=== PATIENT | male | born 1930 | race Caucasian/White ===

== ENCOUNTER 2017-01-28 11:55 | Inpatient (IN) | payer OTHER ==
[~2017-01-28] VITALS: Ht 167.6 cm; Wt 63.6 kg
[~2017-01-28 11:55] MED LIST: ALLOPURINOL100 MG PO; CAPSAICIN42.5 GM TP; COUMADIN,JANTO1.5 MG PO; COUMADIN3 MG PO; CYANOCOBALAM1000 MCG PO; FERROUS SULFAT325 MG PO; FINASTERIDE5 M1 PO; LOSARTAN POTASS50 MG PO; NORVASC10 MG PO; OMEPRAZOLE20 M2 PO; PROPRANOLOL HCL60 MG PO; SIMVASTATIN20 M1 PO; TERAZOSIN HCL2 MG PO; TRANSDERM-NITR0.2 MG TD; TYLENOL325 M1 PO; WARFARIN SODIUM3 MG PO
[2017-01-28 13:31] LABS: HEMATOCRIT 29.3 % (38.0-50.0); MCH 30.2 PG (29.0-34.0); MCHC 31.7 G/DL (30.0-36.0); MCV 95.1 FL (86-99); MEAN PLAT.VOLUME 9.2 uM^3 (9.0-12.4); PLATELET COUNT 94 K/uL (156-360); RBC DIS.WIDTH-CV 13.6 % (11.8-14.6); RBC DIS.WIDTH-SD 46.9 % (39-53); RED BLOOD COUNT 3.08 M/uL (4.00-5.50); WHITE BLOOD COUNT 4.6 K/uL (4.1-10.2)
[2017-01-28 13:39] LABS: INTER. NORMALIZED RATIO 1.9; PROTHROMBIN TIME 19.6 (9.2-11.2)
[2017-01-28 13:40] LABS: CHLORIDE 101 mEq/L (99-109); POTASSIUM 4.1 mEq/L (3.7-5.4); SODIUM 133 mEq/L (136-147)
[2017-01-28 13:42] LABS: GLUCOSE 99 mg/dL (70-99)
[2017-01-28 13:43] LABS: ANION GAP 9 MEQ/L (2-14)
[2017-01-28 13:46] LABS: GFR ESTIMATE (CALCULATED) 47 mL/min/
[2017-01-28 13:47] LABS: UREA NITROGEN (BUN) 25 mg/dL (9-23)
[2017-01-28] MEDS ORDERED: ZOCOR80 MG PO (14:00)
[2017-01-28] MEDS ORDERED: NITROGLYCERIN1 EAC4 TD (14:02)
[2017-01-28] MEDS ORDERED: PROPRANOLOL HCL20 MG PO (14:04)
[2017-01-28] MEDS ORDERED: COZAAR100 MG PO (14:05)
[2017-01-28] MEDS ORDERED: PROSCAR5 MG PO (14:06)
[2017-01-28] MEDS ORDERED: VITAMIN D31000 UNIT PO (14:08)
[2017-01-28] MEDS ORDERED: LASIX40 MG PO (14:09)
[2017-01-28] MEDS ORDERED: K-DUR20 MEQ PO (14:10)
[2017-01-28 16:34] VITALS: BP 118/61
[2017-01-28 16:37] LABS: ADD MIUA? YES; BILIRUBIN NEGATIVE; BLOOD MODERATE; COLOR STRAW ((YELLOW)); GLUCOSE (STRIP) NEGATIVE; KETONES NEGATIVE; LEUKOCYTES NEGATIVE; NITRITE NEGATIVE; PROTEIN (STRIP) NEGATIVE; SPECIFIC GRAVITY 1.004 (1.000-1.030); UROBILINOGEN 0.2 MG/DL (0.2-1.0)
[2017-01-28 16:45] LABS: BACTERIA NONE SEEN /HPF; EPITHELIAL CELLS NONE SEEN /HPF; MUCUS TRACE /LPF; RED BLOOD CELLS 0-5 /HPF (0-5); WHITE BLOOD CELLS 0-5 /HPF (0-5)
[2017-01-28 18:27] LABS: HEMATOCRIT 29.8 % (38.0-50.0); MCH 30.2 PG (29.0-34.0); MCHC 31.5 G/DL (30.0-36.0); MCV 95.8 FL (86-99); MEAN PLAT.VOLUME 10.3 uM^3 (9.0-12.4); PLATELET COUNT 100 K/uL (156-360); RBC DIS.WIDTH-CV 13.7 % (11.8-14.6); RBC DIS.WIDTH-SD 47.8 % (39-53); RED BLOOD COUNT 3.11 M/uL (4.00-5.50)
[2017-01-28 19:14] VITALS: BP 111/63
[2017-01-28 23:25] VITALS: BP 90/60
[2017-01-29] VITALS (10 sets, daily range): BP systolic 93–145; BP diastolic 51–70
[2017-01-29 05:46] LABS: EOSINOPHIL (%) 0.2 % (0-5); IMMATURE GRANULOCYTE (%) 0.2 % (0.0-0.7); INSTRUMENT ABS NEUTROPHIL CT 2.8 K/uL; MCH 31.7 PG (29.0-34.0); MCHC 33.4 G/DL (30.0-36.0); MCV 94.8 FL (86-99); MEAN PLAT.VOLUME 10.1 uM^3 (9.0-12.4); MONOCYTE (%) 10.8 % (3-12); MONOCYTE COUNT 0.5 K/uL (0-0.8); NEUTROPHIL (%) 66.2 % (45-76); NEUTROPHIL COUNT 2.8 K/uL (1.8-6.4); PLATELET COUNT 85 K/uL (156-360); RBC DIS.WIDTH-CV 14.1 % (11.8-14.6); RBC DIS.WIDTH-SD 48.3 % (39-53); RED BLOOD COUNT 3.06 M/uL (4.00-5.50); WHITE BLOOD COUNT 4.3 K/uL (4.1-10.2)
[2017-01-29 06:12] LABS: PROTHROMBIN TIME 20.4 (9.2-11.2)
[2017-01-29 06:34] LABS: ANION GAP 8 MEQ/L (2-14); CHLORIDE 103 MEQ/L (99-109); GFR ESTIMATE (CALCULATED) 44 mL/min/; GLUCOSE 96 mg/dL (70-99); POTASSIUM 4.3 MEQ/L (3.7-5.4); SAMPLE HEMOLYSIS CHECK 0; SAMPLE ICTERIC CHECK 0; SAMPLE LIPEMIA CHECK 0; SODIUM 137 MEQ/L (136-147); UREA NITROGEN (BUN) 26 mg/dL (9-23)
[2017-01-30] VITALS (10 sets, daily range): BP systolic 82–135; BP diastolic 46–69
[2017-01-30 06:36] LABS: EOSINOPHIL (%) 0.2 % (0-5); HEMATOCRIT 29.5 % (38.0-50.0); IMMATURE GRANULOCYTE (%) 0.6 % (0.0-0.7); INSTRUMENT ABS NEUTROPHIL CT 3.2 K/uL; LYMPHOCYTE COUNT 1.1 K/uL (1.0-2.8); MCH 31.4 PG (29.0-34.0); MCHC 33.2 G/DL (30.0-36.0); MCV 94.6 FL (86-99); MEAN PLAT.VOLUME 10.9 uM^3 (9.0-12.4); MONOCYTE COUNT 0.5 K/uL (0-0.8); NEUTROPHIL (%) 65.9 % (45-76); NEUTROPHIL COUNT 3.2 K/uL (1.8-6.4); PLATELET COUNT 92 K/uL (156-360); RBC DIS.WIDTH-CV 14.4 % (11.8-14.6); RBC DIS.WIDTH-SD 48.7 % (39-53); RED BLOOD COUNT 3.12 M/uL (4.00-5.50); WHITE BLOOD COUNT 4.8 K/uL (4.1-10.2)
[2017-01-30 06:46] LABS: INTER. NORMALIZED RATIO 2.1; PROTHROMBIN TIME 21.4 (9.2-11.2)
[2017-01-30 07:00] LABS: ANION GAP 8 MEQ/L (2-14); CHLORIDE 102 MEQ/L (99-109); POTASSIUM 3.9 MEQ/L (3.7-5.4); SAMPLE HEMOLYSIS CHECK 0; SAMPLE ICTERIC CHECK 0; SAMPLE LIPEMIA CHECK 0; SODIUM 138 MEQ/L (136-147)
[2017-01-30 07:06] LABS: GFR ESTIMATE (CALCULATED) 41 mL/min/; GLUCOSE 95 mg/dL (70-99); UREA NITROGEN (BUN) 29 mg/dL (9-23)
[2017-01-30 18:29] LABS: ANION GAP 9 MEQ/L (2-14); CHLORIDE 103 MEQ/L (99-109); GFR ESTIMATE (CALCULATED) 44 mL/min/; GLUCOSE 116 mg/dL (70-99); POTASSIUM 3.7 MEQ/L (3.7-5.4); SAMPLE HEMOLYSIS CHECK 0; SAMPLE ICTERIC CHECK 0; SAMPLE LIPEMIA CHECK 0; SODIUM 137 MEQ/L (136-147); UREA NITROGEN (BUN) 33 mg/dL (9-23)
[2017-01-31] VITALS (7 sets, daily range): BP systolic 100–126; BP diastolic 64–74
[2017-01-31 06:12] LABS: HEMATOCRIT 30.2 % (38.0-50.0); MCH 31.7 PG (29.0-34.0); MCHC 33.8 G/DL (30.0-36.0); MCV 93.8 FL (86-99); PLATELET COUNT 90 K/uL (156-360); RBC DIS.WIDTH-CV 14.3 % (11.8-14.6); RBC DIS.WIDTH-SD 49.1 % (39-53); RED BLOOD COUNT 3.22 M/uL (4.00-5.50); WHITE BLOOD COUNT 5.2 K/uL (4.1-10.2)
[2017-01-31 06:36] LABS: INTER. NORMALIZED RATIO 1.4; PROTHROMBIN TIME 14.7 (9.2-11.2)
[2017-01-31 06:38] LABS: ANION GAP 9 MEQ/L (2-14); CHLORIDE 104 MEQ/L (99-109); GFR ESTIMATE (CALCULATED) 47 mL/min/; GLUCOSE 104 mg/dL (70-99); POTASSIUM 3.8 MEQ/L (3.7-5.4); SAMPLE HEMOLYSIS CHECK 0; SAMPLE ICTERIC CHECK 0; SAMPLE LIPEMIA CHECK 0; SODIUM 139 MEQ/L (136-147); UREA NITROGEN (BUN) 31 mg/dL (9-23)
[2017-01-31 10:54] LABS: INTER. NORMALIZED RATIO 1.3; PROTHROMBIN TIME 13.4 (9.2-11.2)
[2017-02-01 03:54] VITALS: BP 129/63
[2017-02-01 06:45] LABS: EOSINOPHIL (%) 0 % (0-5); HEMATOCRIT 30.2 % (38.0-50.0); IMMATURE GRANULOCYTE (%) 0.4 % (0.0-0.7); INSTRUMENT ABS NEUTROPHIL CT 4.1 K/uL; LYMPHOCYTE COUNT 0.9 K/uL (1.0-2.8); MCH 30.6 PG (29.0-34.0); MCHC 32.5 G/DL (30.0-36.0); MCV 94.4 FL (86-99); MEAN PLAT.VOLUME 10.7 uM^3 (9.0-12.4); MONOCYTE (%) 10.2 % (3-12); MONOCYTE COUNT 0.6 K/uL (0-0.8); NEUTROPHIL COUNT 4.1 K/uL (1.8-6.4); PLATELET COUNT 99 K/uL (156-360); RBC DIS.WIDTH-CV 14.2 % (11.8-14.6); RBC DIS.WIDTH-SD 48.2 % (39-53); WHITE BLOOD COUNT 5.6 K/uL (4.1-10.2)
[2017-02-01 07:13] LABS: INTER. NORMALIZED RATIO 1.3; PROTHROMBIN TIME 13.1 (9.2-11.2)
[2017-02-01 07:28] LABS: ALKALINE PHOSPHATASE 55 IU/L (3-129); ANION GAP 9 MEQ/L (2-14); CHLORIDE 106 MEQ/L (99-109); GFR ESTIMATE (CALCULATED) 47 mL/min/; GLUCOSE 118 mg/dL (70-99); POTASSIUM 4.2 MEQ/L (3.7-5.4); SAMPLE HEMOLYSIS CHECK 0; SAMPLE ICTERIC CHECK 0; SAMPLE LIPEMIA CHECK 0; SODIUM 141 MEQ/L (136-147); TOTAL BILIRUBIN 0.7 MG/DL (0.0-1.0); UREA NITROGEN (BUN) 34 mg/dL (9-23)
[2017-02-01 07:30] LABS: ANION GAP 8 MEQ/L (2-14); CHLORIDE 106 MEQ/L (99-109); GFR ESTIMATE (CALCULATED) 51 mL/min/; GLUCOSE 116 mg/dL (70-99); POTASSIUM 4.2 MEQ/L (3.7-5.4); SAMPLE HEMOLYSIS CHECK 0; SAMPLE ICTERIC CHECK 0; SAMPLE LIPEMIA CHECK 0; SODIUM 141 MEQ/L (136-147); UREA NITROGEN (BUN) 34 mg/dL (9-23)
[2017-02-01 07:40] VITALS: BP 125/60
[2017-02-01 10:38] LABS: INTER. NORMALIZED RATIO 1.3; PROTHROMBIN TIME 13.1 (9.2-11.2)
[2017-02-01 11:05] VITALS: BP 90/56
[2017-02-01 16:08] LABS: MCV 95.5 FL (86-99)
[2017-02-01 16:17] VITALS: BP 127/58
[2017-02-01 20:15] VITALS: BP 109/59
[2017-02-01 23:36] VITALS: BP 108/59
[2017-02-02 04:14] VITALS: BP 119/69
[2017-02-02 07:45] VITALS: BP 124/71
[2017-02-02 09:05] LABS: HEMATOCRIT 31.6 % (38.0-50.0); MCH 30.9 PG (29.0-34.0); MCV 96.6 FL (86-99); MEAN PLAT.VOLUME 10.6 uM^3 (9.0-12.4); PLATELET COUNT 122 K/uL (156-360); RBC DIS.WIDTH-CV 14.3 % (11.8-14.6); RED BLOOD COUNT 3.27 M/uL (4.00-5.50); WHITE BLOOD COUNT 5.2 K/uL (4.1-10.2)
[2017-02-02 09:17] LABS: INTER. NORMALIZED RATIO 1.4; PROTHROMBIN TIME 13.9 (9.2-11.2)
[2017-02-02 09:21] LABS: ANION GAP 6 MEQ/L (2-14); CHLORIDE 106 MEQ/L (99-109); GFR ESTIMATE (CALCULATED) 51 mL/min/; GLUCOSE 98 mg/dL (70-99); POTASSIUM 4.2 MEQ/L (3.7-5.4); SAMPLE HEMOLYSIS CHECK 0; SAMPLE ICTERIC CHECK 0; SAMPLE LIPEMIA CHECK 0; SODIUM 139 MEQ/L (136-147); UREA NITROGEN (BUN) 35 mg/dL (9-23)
[2017-02-02 11:42] VITALS: BP 119/65
[2017-02-02 19:47] VITALS: BP 115/69
[2017-02-02 23:26] VITALS: BP 106/57
[2017-02-03 03:51] VITALS: BP 113/65
[2017-02-03 06:43] LABS: HEMATOCRIT 31.6 % (38.0-50.0); MCH 30.6 PG (29.0-34.0); MCV 95.8 FL (86-99); MEAN PLAT.VOLUME 11.1 uM^3 (9.0-12.4); PLATELET COUNT 130 K/uL (156-360); RBC DIS.WIDTH-CV 14.2 % (11.8-14.6); RBC DIS.WIDTH-SD 49.1 % (39-53); WHITE BLOOD COUNT 6.1 K/uL (4.1-10.2)
[2017-02-03 06:54] LABS: INTER. NORMALIZED RATIO 1.6; PROTHROMBIN TIME 16.7 (9.2-11.2)
[2017-02-03 07:02] LABS: ANION GAP 9 MEQ/L (2-14); CHLORIDE 106 MEQ/L (99-109); GFR ESTIMATE (CALCULATED) 51 mL/min/; GLUCOSE 98 mg/dL (70-99); POTASSIUM 4.1 MEQ/L (3.7-5.4); SAMPLE HEMOLYSIS CHECK 0; SAMPLE ICTERIC CHECK 0; SAMPLE LIPEMIA CHECK 0; SODIUM 140 MEQ/L (136-147); UREA NITROGEN (BUN) 35 mg/dL (9-23)
[2017-02-03 07:35] VITALS: BP 114/64
[2017-02-03 10:51] LABS: MAGNESIUM 1.8 mg/dl (1.3-2.7)
[2017-02-03 11:54] VITALS: BP 123/65
[2017-02-03 12:34] LABS: ADD MIUA? YES; BILIRUBIN NEGATIVE; BLOOD NEGATIVE; COLOR YELLOW ((YELLOW)); GLUCOSE (STRIP) NEGATIVE; KETONES 5; LEUKOCYTES NEGATIVE; NITRITE NEGATIVE; PROTEIN (STRIP) NEGATIVE; UROBILINOGEN 0.2 MG/DL (0.2-1.0)
[2017-02-03 12:41] LABS: BACTERIA NONE SEEN /HPF; EPITHELIAL CELLS RARE /HPF; MUCUS TRACE /LPF; RED BLOOD CELLS 0-5 /HPF (0-5); WHITE BLOOD CELLS 0-5 /HPF (0-5)
[2017-02-03 15:20] VITALS: BP 129/70
[2017-02-03 19:38] VITALS: BP 119/65
[2017-02-03 19:51] VITALS: BP 121/64
[2017-02-04 00:25] VITALS: BP 95/59
[2017-02-04 03:50] VITALS: BP 110/61
[2017-02-04 06:37] LABS: PROTHROMBIN TIME 20.3 (9.2-11.2)
[2017-02-04 07:31] VITALS: BP 116/62
[2017-02-04 12:33] VITALS: BP 103/67
[2017-02-04] MEDS ORDERED: COUMADIN3 MG PO (14:30)
[2017-02-04] MEDS ORDERED: COUMADIN2 MG PO (14:34)
== END 2017-02-04 16:42 | DRG 480 ==
LOC: EME 11:55 → 3EAST 14:00 → EDOF 14:00 → 3EAST 15:00
PROVIDERS: Emergency Medicine; Hospitalist; Internal Medicine; Orthopaedic Surgery; Physician Assistant
PROC: 30233N1 Transfusion of Nonautologous Red Blood Cells into Peripheral Vein, Percutaneous Approach (ICD-10-PCS; principal; 2017-01-29)
PROC: 0QS704Z Reposition Left Upper Femur with Internal Fixation Device, Open Approach (ICD-10-PCS; 2017-01-31)
DX: S72.142A Displaced intertrochanteric fracture of left femur, initial encounter for closed fracture (principal); J96.01 Acute respiratory failure with hypoxia; I47.2 Ventricular tachycardia; N17.9 Acute kidney failure, unspecified; D61.818 Other pancytopenia; I95.9 Hypotension, unspecified; I13.0 Hypertensive heart and chronic kidney disease with heart failure and stage 1 through stage 4 chronic kidney disease, or unspecified chronic kidney disease; D68.9 Coagulation defect, unspecified; N18.3 Chronic kidney disease, stage 3 (moderate); I27.2 Other secondary pulmonary hypertension; E78.5 Hyperlipidemia, unspecified; E86.0 Dehydration; E86.1 Hypovolemia; G20 Parkinson's disease; I25.10 Atherosclerotic heart disease of native coronary artery without angina pectoris; M10.9 Gout, unspecified; Z86.711 Personal history of pulmonary embolism; Z79.01 Long term (current) use of anticoagulants; K21.9 Gastro-esophageal reflux disease without esophagitis; K91.89 Other postprocedural complications and disorders of digestive system; K56.7 Ileus, unspecified; M41.9 Scoliosis, unspecified; N40.1 Benign prostatic hyperplasia with lower urinary tract symptoms; R33.8 Other retention of urine; Z86.718 Personal history of other venous thrombosis and embolism; Z87.442 Personal history of urinary calculi; N13.30 Unspecified hydronephrosis; Z95.1 Presence of aortocoronary bypass graft; R41.0 Disorientation, unspecified; W11.XXXA Fall on and from ladder, initial encounter; Y92.010 Kitchen of single-family (private) house as the place of occurrence of the external cause; I87.2 Venous insufficiency (chronic) (peripheral); B35.1 Tinea unguium; I89.0 Lymphedema, not elsewhere classified; M17.12 Unilateral primary osteoarthritis, left knee; I50.32 Chronic diastolic (congestive) heart failure; D62 Acute posthemorrhagic anemia; D64.9 Anemia, unspecified; D63.1 Anemia in chronic kidney disease
CPT/HCPCS: 70450; 71010; 71020; 73501; 73502; 73552; 73560; 74000; 76000; 76770; 80048; 80048 91; 80053; 81003; 82272; 83735; 85014; 85018; 85025; 85027; 85610; 85730; 86900; 86901; 86920; 87086; 93005; 93306; 94799; 97530 GO; 97530 GP; 99202; 99281; 99285; C1713; J0330; J0690; J1100; J1644; J1650; J1815; J1940; J2270; J2405; J2710; J3010; J7030; J7120; P9016

== ENCOUNTER 2017-02-08 05:40 | Emergency (ER) | payer OTHER ==
[~2017-02-08] VITALS: Ht 185.4 cm; Wt 82.0 kg
[~2017-02-08 05:40] MED LIST changes: +COUMADIN2 MG PO; +COZAAR100 MG PO; +K-DUR20 MEQ PO; +LASIX40 MG PO; +NITROGLYCERIN1 EAC4 TD; +PROPRANOLOL HCL20 MG PO; +PROSCAR5 MG PO; +VITAMIN D31000 UNIT PO; +ZOCOR80 MG PO
[2017-02-08 06:45] VITALS: BP 98/61
== END 2017-02-08 07:51 ==
LOC: EME → EDBD 05:40 → EME 05:40
DX: G89.18 Other acute postprocedural pain (principal); S00.93XA Contusion of unspecified part of head, initial encounter; W06.XXXA Fall from bed, initial encounter; Y92.122 Bedroom in nursing home as the place of occurrence of the external cause; I11.0 Hypertensive heart disease with heart failure; I50.9 Heart failure, unspecified; E78.5 Hyperlipidemia, unspecified; K21.9 Gastro-esophageal reflux disease without esophagitis
CPT/HCPCS: 70450; 71010; 73030; 73522; 80048; 85027; 85610; 85730; 93005; 99281; 99285

== ENCOUNTER 2017-02-18 03:52 | Inpatient (IN) | payer OTHER ==
[~2017-02-18] VITALS: Ht 167.6 cm; Wt 94.3 kg
[2017-02-18] VITALS (22 sets, daily range): BP systolic 70–114; BP diastolic 35–63
[2017-02-18 04:14] LABS: BASE EXCESS -5.7 mEq/L (-3 to +3); BICARBONATE 17.5 mEq/L (22-26); CARBOXY HGB 2.2 % (0-5); COMMENTS - BLOOD GASES A+C+; DEVICE MASKVENT; METHEMOGLOBIN 1.6 % (0-1.5); PCO2 27 mm Hg (35-45); PO2 229 mm Hg (80-100); SITE RR; pH 7.42 (7.35-7.45)
[2017-02-18 04:15] LABS: FI02 100 %; MODE NSPONT; PEEP 12 CM/H20; PRES. SUPPORT 15 CM/H2O; TOTAL RESP RATE 29 resp/min
[2017-02-18 05:15] LABS: BASE EXCESS -5.9 mEq/L (-3 to +3); BICARBONATE 18.3 mEq/L (22-26); CARBOXY HGB 2.2 % (0-5); COMMENTS - BLOOD GASES C+; DEVICE VENT; FI02 50 %; MECHANICAL RATE 16 resp/min; METHEMOGLOBIN 1.3 % (0-1.5); MODE A/C; PCO2 31 mm Hg (35-45); PEEP 5 CM/H20; PO2 76 mm Hg (80-100); SITE RR; TIDAL VOLUME 500 ML; TOTAL RESP RATE 19 resp/min; pH 7.38 (7.35-7.45)
[2017-02-18 05:38] LABS: HEMATOCRIT 35.9 % (38.0-50.0); MCH 30.2 PG (29.0-34.0); MCHC 32.6 G/DL (30.0-36.0); MCV 92.8 FL (86-99); MEAN PLAT.VOLUME 10.6 uM^3 (9.0-12.4); RBC DIS.WIDTH-CV 14.8 % (11.8-14.6); RBC DIS.WIDTH-SD 50.2 % (39-53); RED BLOOD COUNT 3.87 M/uL (4.00-5.50); WHITE BLOOD COUNT 8.1 K/uL (4.1-10.2)
[2017-02-18 05:39] LABS: PLATELET COUNT 237 K/uL (156-360)
[2017-02-18 05:40] LABS: CHLORIDE 108 mEq/L (99-109); POTASSIUM 3.8 mEq/L (3.7-5.4); SODIUM 138 mEq/L (136-147)
[2017-02-18 05:43] LABS: GLUCOSE 83 mg/dL (70-99); PTT 51.1 (25-32)
[2017-02-18 05:44] LABS: ANION GAP 13 MEQ/L (2-14); TOTAL BILIRUBIN 1.6 mg/dL (0.0-1.0)
[2017-02-18 05:46] LABS: ALKALINE PHOSPHATASE 124 IU/L (3-129); GFR ESTIMATE (CALCULATED) 44 mL/min/
[2017-02-18 05:47] LABS: INTER. NORMALIZED RATIO 3.4; UREA NITROGEN (BUN) 57 mg/dL (9-23)
[2017-02-18 05:50] LABS: LIPASE 69 U/L (1.0-51.0)
[2017-02-18 05:52] LABS: TROP-I INTERPRETATION INDETERMINATE
[2017-02-18 09:03] LABS: METH RESISTANT S AUREUS PCR POSITIVE (NEGATIVE)
[2017-02-18 09:15] LABS: PROBE CHECK PASS; SPECIMEN PROCESSING CONTROL PASS
[2017-02-18 11:04] LABS: MAGNESIUM 1.8 mg/dL (1.3-2.7)
[2017-02-18 15:33] LABS: TROPONIN-I 0.76 ng/mL (0.0-0.30)
[2017-02-18 15:34] LABS: TROP-I INTERPRETATION POSITIVE
[2017-02-18 15:53] LABS: CK-MB 2.1 ng/mL (0.0-4.9)
[2017-02-18 16:07] LABS: CREATINE KINASE 125 IU/L (1-294); TOTAL CK 125 IU/L (1-294)
[2017-02-18 18:13] LABS: TROP-I INTERPRETATION POSITIVE; TROPONIN-I 0.74 ng/mL (0.0-0.30)
[2017-02-18 18:56] LABS: POINT-OF-CARE METER ID UU13113748
[2017-02-18 19:55] LABS: CREATINE KINASE 94 IU/L (1-294); TOTAL CK 94 IU/L (1-294)
[2017-02-18 23:22] LABS: POINT-OF-CARE METER ID UU13113748; POINT-OF-CARE USER ID PHATLC
[2017-02-19] VITALS: BP 90/48
[2017-02-19 01:03] LABS: CREATINE KINASE 80 IU/L (1-294); TOTAL CK 80 IU/L (1-294)
[2017-02-19 01:06] LABS: TROP-I INTERPRETATION POSITIVE; TROPONIN-I 0.81 ng/mL (0.0-0.30)
[2017-02-19 01:09] LABS: CK-MB 1.6 ng/mL (0.0-4.9)
[2017-02-19 06:08] LABS: POINT-OF-CARE METER ID UU13113748
[2017-02-19 06:13] LABS: EOSINOPHIL (%) 0.1 % (0-5); HEMATOCRIT 29.4 % (38.0-50.0); IMMATURE GRANULOCYTE (%) 0.5 % (0.0-0.7); IMMATURE GRANULOCYTE COUNT 0.1 K/uL; INSTRUMENT ABS NEUTROPHIL CT 10.2 K/uL; MCH 31.8 PG (29.0-34.0); MCHC 34.4 G/DL (30.0-36.0); MCV 92.5 FL (86-99); MEAN PLAT.VOLUME 11.6 uM^3 (9.0-12.4); MONOCYTE (%) 5.8 % (3-12); MONOCYTE COUNT 0.7 K/uL (0-0.8); NEUTROPHIL (%) 84.6 % (45-76); NEUTROPHIL COUNT 10.2 K/uL (1.8-6.4); PLATELET COUNT 268 K/uL (156-360); RBC DIS.WIDTH-CV 15.3 % (11.8-14.6); RBC DIS.WIDTH-SD 51.3 % (39-53); RED BLOOD COUNT 3.18 M/uL (4.00-5.50)
[2017-02-19 07:10] LABS: TROP-I INTERPRETATION POSITIVE; TROPONIN-I 0.72 ng/mL (0.0-0.30)
[2017-02-19 07:23] LABS: CK-MB 1.9 ng/mL (0.0-4.9)
[2017-02-19 07:26] LABS: INTER. NORMALIZED RATIO 1.5; PROTHROMBIN TIME 15.6 (9.2-11.2)
[2017-02-19 07:34] LABS: ANION GAP 14 MEQ/L (2-14); CHLORIDE 114 MEQ/L (99-109); CREATINE KINASE 50 IU/L (1-294); GFR ESTIMATE (CALCULATED) 51 mL/min/; GLUCOSE 81 mg/dL (70-99); MAGNESIUM 1.9 mg/dl (1.3-2.7); POTASSIUM 3.4 MEQ/L (3.7-5.4); SAMPLE HEMOLYSIS CHECK 0; SAMPLE ICTERIC CHECK 0; SAMPLE LIPEMIA CHECK 0; SODIUM 141 MEQ/L (136-147); UREA NITROGEN (BUN) 46 mg/dL (9-23)
[2017-02-19 07:40] LABS: TOTAL CK 50 IU/L (1-294)
[2017-02-19 08:31] LABS: INTERNAL CONTROL VALID? YES
[2017-02-19 09:30] VITALS: BP 85/58
[2017-02-19 09:50] LABS: BICARBONATE 14.2 mEq/L (22-26); CARBOXY HGB 2.2 % (0-5); COMMENTS - BLOOD GASES NAC+; DEVICE 980; FI02 30 %; METHEMOGLOBIN 1.9 % (0-1.5); MODE ACVC; PCO2 27 mm Hg (35-45); PO2 109 mm Hg (80-100); SITE ALINE; pH 7.33 (7.35-7.45)
[2017-02-19 09:51] LABS: MECHANICAL RATE 16 resp/min; PEEP 5 CM/H20; TIDAL VOLUME 500 ML; TOTAL RESP RATE 16 resp/min
[2017-02-19 10:00] VITALS: BP 85/58
[2017-02-19 10:56] LABS: PTT 48.7 (25-32)
[2017-02-19 12:00] VITALS: BP 104/68
[2017-02-19 12:43] LABS: POINT-OF-CARE METER ID UU13113748
[2017-02-19 16:00] VITALS: BP 107/68
[2017-02-19 18:32] LABS: POINT-OF-CARE METER ID UU13113748
[2017-02-19 20:00] VITALS: BP 97/64
[2017-02-20 00:31] LABS: POINT-OF-CARE METER ID UU13113748
[2017-02-20 04:00] VITALS: BP 108/68
[2017-02-20 06:03] LABS: POINT-OF-CARE METER ID UU13113731
[2017-02-20 06:10] LABS: EOSINOPHIL (%) 0.4 % (0-5); HEMATOCRIT 24.4 % (38.0-50.0); IMMATURE GRANULOCYTE (%) 0.4 % (0.0-0.7); LYMPHOCYTE COUNT 0.8 K/uL (1.0-2.8); MCH 31.5 PG (29.0-34.0); MCHC 34.8 G/DL (30.0-36.0); MCV 90.4 FL (86-99); MEAN PLAT.VOLUME 11.3 uM^3 (9.0-12.4); MONOCYTE (%) 7.1 % (3-12); MONOCYTE COUNT 0.6 K/uL (0-0.8); NEUTROPHIL (%) 82.5 % (45-76); PLATELET COUNT 215 K/uL (156-360); RBC DIS.WIDTH-CV 15.3 % (11.8-14.6); WHITE BLOOD COUNT 8.4 K/uL (4.1-10.2)
[2017-02-20 06:42] LABS: INTER. NORMALIZED RATIO 1.3; PROTHROMBIN TIME 13.3 (9.2-11.2)
[2017-02-20 06:44] LABS: PTT 86.1 (25-32)
[2017-02-20 06:56] LABS: ANION GAP 5 MEQ/L (2-14); CHLORIDE 112 MEQ/L (99-109); GFR ESTIMATE (CALCULATED) 56 mL/min/; SAMPLE HEMOLYSIS CHECK 2; SAMPLE ICTERIC CHECK 0; SAMPLE LIPEMIA CHECK 0; SODIUM 141 MEQ/L (136-147); UREA NITROGEN (BUN) 36 mg/dL (9-23)
[2017-02-20 06:57] LABS: GLUCOSE 151 mg/dL (70-99)
[2017-02-20 06:59] LABS: POTASSIUM ND MEQ/L (3.7-5.4)
[2017-02-20 08:00] VITALS: BP 100/62
[2017-02-20 08:11] LABS: POTASSIUM 2.9 MEQ/L (3.7-5.4)
[2017-02-20 12:00] VITALS: BP 87/56
[2017-02-20 12:01] LABS: POINT-OF-CARE METER ID UU13113731
[2017-02-20 15:00] VITALS: BP 96/73
[2017-02-20 16:00] VITALS: BP 96/73
[2017-02-20 18:04] LABS: POINT-OF-CARE METER ID UU14162636
[2017-02-20 19:00] VITALS: BP 107/87
[2017-02-20 19:41] LABS: HEMATOCRIT 23.6 % (38.0-50.0); MCV 91.8 FL (86-99)
[2017-02-21 00:09] LABS: POINT-OF-CARE METER ID UU14162636
[2017-02-21 03:31] LABS: HEMATOCRIT 22.7 % (38.0-50.0); MCV 91.5 FL (86-99)
[2017-02-21 07:00] VITALS: BP 108/71
[2017-02-21 07:02] LABS: EOSINOPHIL (%) 0.6 % (0-5); IMMATURE GRANULOCYTE (%) 0.5 % (0.0-0.7); INSTRUMENT ABS NEUTROPHIL CT 4.8 K/uL; LYMPHOCYTE COUNT 0.9 K/uL (1.0-2.8); MCH 31.8 PG (29.0-34.0); MCHC 33.9 G/DL (30.0-36.0); MCV 93.9 FL (86-99); MEAN PLAT.VOLUME 10.6 uM^3 (9.0-12.4); MONOCYTE COUNT 0.4 K/uL (0-0.8); NEUTROPHIL (%) 77.5 % (45-76); NEUTROPHIL COUNT 4.8 K/uL (1.8-6.4); PLATELET COUNT 171 K/uL (156-360); RBC DIS.WIDTH-CV 15.3 % (11.8-14.6); RBC DIS.WIDTH-SD 52.4 % (39-53); RED BLOOD COUNT 2.45 M/uL (4.00-5.50); WHITE BLOOD COUNT 6.2 K/uL (4.1-10.2)
[2017-02-21 07:18] LABS: INTER. NORMALIZED RATIO 1.2; PROTHROMBIN TIME 12.6 (9.2-11.2)
[2017-02-21 07:43] LABS: ANION GAP 10 MEQ/L (2-14); CHLORIDE 111 MEQ/L (99-109); GFR ESTIMATE (CALCULATED) > 59 mL/min/; MAGNESIUM 1.7 mg/dl (1.3-2.7); SAMPLE HEMOLYSIS CHECK 1; SAMPLE ICTERIC CHECK 0; SAMPLE LIPEMIA CHECK 0; SODIUM 143 MEQ/L (136-147); UREA NITROGEN (BUN) 29 mg/dL (9-23)
[2017-02-21 07:44] LABS: GLUCOSE 105 mg/dL (70-99)
[2017-02-21 08:00] VITALS: BP 101/56
[2017-02-21 12:32] LABS: HEMATOCRIT 23.8 % (38.0-50.0); MCV 93.3 FL (86-99)
[2017-02-21 13:00] VITALS: BP 122/72
[2017-02-21 16:00] VITALS: BP 108/71
[2017-02-21 20:00] VITALS: BP 111/64
[2017-02-22] VITALS (13 sets, daily range): BP systolic 72–131; BP diastolic 45–64
[2017-02-22 05:18] LABS: EOSINOPHIL (%) 0.1 % (0-5); HEMATOCRIT 22.8 % (38.0-50.0); IMMATURE GRANULOCYTE (%) 0.6 % (0.0-0.7); INSTRUMENT ABS NEUTROPHIL CT 5.4 K/uL; LYMPHOCYTE COUNT 0.7 K/uL (1.0-2.8); MCH 30.2 PG (29.0-34.0); MCV 94.2 FL (86-99); MEAN PLAT.VOLUME 11.1 uM^3 (9.0-12.4); MONOCYTE (%) 10.1 % (3-12); MONOCYTE COUNT 0.7 K/uL (0-0.8); NEUTROPHIL (%) 79.3 % (45-76); NEUTROPHIL COUNT 5.4 K/uL (1.8-6.4); PLATELET COUNT 135 K/uL (156-360); RBC DIS.WIDTH-CV 15.4 % (11.8-14.6); RBC DIS.WIDTH-SD 52.9 % (39-53); RED BLOOD COUNT 2.42 M/uL (4.00-5.50); WHITE BLOOD COUNT 6.8 K/uL (4.1-10.2)
[2017-02-22 05:28] LABS: INTER. NORMALIZED RATIO 1.2; PROTHROMBIN TIME 12.1 (9.2-11.2); PTT 60.8 (25-32)
[2017-02-22 06:04] LABS: ANION GAP 9 MEQ/L (2-14); CHLORIDE 111 MEQ/L (99-109); GFR ESTIMATE (CALCULATED) 56 mL/min/; GLUCOSE 107 mg/dL (70-99); SAMPLE HEMOLYSIS CHECK 0; SAMPLE ICTERIC CHECK 0; SAMPLE LIPEMIA CHECK 0; SODIUM 143 MEQ/L (136-147); UREA NITROGEN (BUN) 28 mg/dL (9-23)
[2017-02-22 14:06] LABS: BASE EXCESS 1.6 mEq/L (-3 to +3); BICARBONATE 25.7 mEq/L (22-26); CARBOXY HGB 2.7 % (0-5); COMMENTS - BLOOD GASES C+; DEVICE VENT; METHEMOGLOBIN 1.7 % (0-1.5); PCO2 37 mm Hg (35-45); PO2 130 mm Hg (80-100); SITE ALINE; pH 7.45 (7.35-7.45)
[2017-02-22 14:07] LABS: FI02 30 %; MODE SPONT; PEEP 5 CM/H20; PRES. SUPPORT 10 CM/H2O
[2017-02-22 14:36] LABS: TROP-I INTERPRETATION POSITIVE
[2017-02-22 20:22] LABS: ADD MIUA? YES; BILIRUBIN NEGATIVE; BLOOD MODERATE; COLOR YELLOW ((YELLOW)); GLUCOSE (STRIP) NEGATIVE; KETONES NEGATIVE; LEUKOCYTES MODERATE; NITRITE NEGATIVE; PROTEIN (STRIP) 30; SPECIFIC GRAVITY 1.013 (1.000-1.030); UROBILINOGEN 0.2 MG/DL (0.2-1.0)
[2017-02-22 21:08] LABS: BACTERIA 3+ /HPF; EPITHELIAL CELLS RARE /HPF; MUCUS 1+ /LPF; UCUL ADDED? YES
[2017-02-22 21:09] LABS: HYALINE CASTS 40-50 /LPF
[2017-02-22 21:15] LABS: CK-MB 1.7 ng/mL (0.0-4.9)
[2017-02-22 21:16] LABS: TROP-I INTERPRETATION POSITIVE
[2017-02-22 21:30] LABS: TOTAL CK 425 IU/L (1-294)
[2017-02-22 21:57] LABS: CREATINE KINASE 425 IU/L (1-294)
[2017-02-23 01:52] LABS: CREATINE KINASE 424 IU/L (1-294); TOTAL CK 424 IU/L (1-294)
[2017-02-23 01:59] LABS: CK-MB 1.4 ng/mL (0.0-4.9)
[2017-02-23 02:05] LABS: TROP-I INTERPRETATION POSITIVE; TROPONIN-I 0.73 ng/mL (0.0-0.30)
[2017-02-23 04:59] LABS: EOSINOPHIL (%) 0.2 % (0-5); HEMATOCRIT 27.1 % (38.0-50.0); IMMATURE GRANULOCYTE (%) 0.7 % (0.0-0.7); IMMATURE GRANULOCYTE COUNT 0.1 K/uL; INSTRUMENT ABS NEUTROPHIL CT 7.6 K/uL; LYMPHOCYTE COUNT 0.6 K/uL (1.0-2.8); MCH 30.2 PG (29.0-34.0); MCHC 33.6 G/DL (30.0-36.0); MEAN PLAT.VOLUME 10.5 uM^3 (9.0-12.4); MONOCYTE (%) 11.9 % (3-12); MONOCYTE COUNT 1.1 K/uL (0-0.8); NEUTROPHIL (%) 80.8 % (45-76); NEUTROPHIL COUNT 7.6 K/uL (1.8-6.4); PLATELET COUNT 123 K/uL (156-360); RBC DIS.WIDTH-SD 52.8 % (39-53); WHITE BLOOD COUNT 9.4 K/uL (4.1-10.2)
[2017-02-23 05:01] LABS: RED BLOOD COUNT 3.01 M/uL (4.00-5.50)
[2017-02-23 05:06] LABS: INTER. NORMALIZED RATIO 1.2; PROTHROMBIN TIME 12.7 (9.2-11.2); PTT 55.1 (25-32)
[2017-02-23 05:13] LABS: CHLORIDE 111 mEq/L (99-109); POTASSIUM 3.7 mEq/L (3.7-5.4); SODIUM 140 mEq/L (136-147)
[2017-02-23 05:14] LABS: MAGNESIUM 1.6 mg/dL (1.3-2.7)
[2017-02-23 05:16] LABS: GLUCOSE 146 mg/dL (70-99)
[2017-02-23 05:17] LABS: ANION GAP 7 MEQ/L (2-14)
[2017-02-23 05:19] LABS: GFR ESTIMATE (CALCULATED) 51 mL/min/
[2017-02-23 05:20] LABS: UREA NITROGEN (BUN) 30 mg/dL (9-23)
[2017-02-23 07:00] VITALS: BP 111/71
[2017-02-23 08:00] VITALS: BP 111/71
[2017-02-23 09:07] LABS: TROP-I INTERPRETATION POSITIVE; TROPONIN-I 0.65 ng/mL (0.0-0.30)
[2017-02-23 09:14] LABS: CREATINE KINASE 290 IU/L (1-294); TOTAL CK 290 IU/L (1-294)
[2017-02-23 11:10] LABS: CK-MB 1.4 ng/mL (0.0-4.9)
[2017-02-23 19:00] VITALS: BP 98/57
[2017-02-23] MEDS ORDERED: WARFARIN SODIUM1 MG PO ×2 (19:06→19:07)
[2017-02-23] MEDS ORDERED: FLOMAX0.4 MG PO (19:16)
[2017-02-23] MEDS ORDERED: K-DUR10 MEQ PO (19:17)
[2017-02-23] MEDS ORDERED: TYLENOL REGULA325 MG PO (19:20)
[2017-02-23 20:00] VITALS: BP 98/57
[2017-02-24 05:44] LABS: EOSINOPHIL COUNT 0.1 K/uL (0-0.3); HEMATOCRIT 25.1 % (38.0-50.0); IMMATURE GRANULOCYTE (%) 0.9 % (0.0-0.7); IMMATURE GRANULOCYTE COUNT 0.1 K/uL; INSTRUMENT ABS NEUTROPHIL CT 5.3 K/uL; LYMPHOCYTE COUNT 0.7 K/uL (1.0-2.8); MCH 29.7 PG (29.0-34.0); MCHC 32.3 G/DL (30.0-36.0); MCV 91.9 FL (86-99); MEAN PLAT.VOLUME 10.9 uM^3 (9.0-12.4); MONOCYTE (%) 10.2 % (3-12); MONOCYTE COUNT 0.7 K/uL (0-0.8); NEUTROPHIL (%) 77.5 % (45-76); NEUTROPHIL COUNT 5.3 K/uL (1.8-6.4); PLATELET COUNT 107 K/uL (156-360); RBC DIS.WIDTH-CV 16.2 % (11.8-14.6); RED BLOOD COUNT 2.73 M/uL (4.00-5.50); WHITE BLOOD COUNT 6.8 K/uL (4.1-10.2)
[2017-02-24 05:56] LABS: INTER. NORMALIZED RATIO 1.2; PROTHROMBIN TIME 12.7 (9.2-11.2); PTT 53.9 (25-32)
[2017-02-24 06:32] LABS: ANION GAP 8 MEQ/L (2-14); CHLORIDE 112 MEQ/L (99-109); GFR ESTIMATE (CALCULATED) 44 mL/min/; GLUCOSE 134 mg/dL (70-99); POTASSIUM 3.8 MEQ/L (3.7-5.4); SAMPLE HEMOLYSIS CHECK 0; SAMPLE ICTERIC CHECK 0; SAMPLE LIPEMIA CHECK 0; SODIUM 144 MEQ/L (136-147); UREA NITROGEN (BUN) 34 mg/dL (9-23)
[2017-02-24 06:34] LABS: MAGNESIUM 2.4 mg/dl (1.3-2.7)
[2017-02-24 18:00] VITALS: BP 101/58
[2017-02-24 19:00] VITALS: BP 101/58
[2017-02-25 05:43] LABS: EOSINOPHIL (%) 1.1 % (0-5); EOSINOPHIL COUNT 0.1 K/uL (0-0.3); HEMATOCRIT 24.3 % (38.0-50.0); IMMATURE GRANULOCYTE (%) 0.9 % (0.0-0.7); IMMATURE GRANULOCYTE COUNT 0.1 K/uL; INSTRUMENT ABS NEUTROPHIL CT 4.9 K/uL; LYMPHOCYTE COUNT 0.8 K/uL (1.0-2.8); MCH 29.7 PG (29.0-34.0); MCHC 32.1 G/DL (30.0-36.0); MCV 92.4 FL (86-99); MEAN PLAT.VOLUME 11.5 uM^3 (9.0-12.4); MONOCYTE (%) 9.9 % (3-12); MONOCYTE COUNT 0.6 K/uL (0-0.8); NEUTROPHIL (%) 75.4 % (45-76); NEUTROPHIL COUNT 4.9 K/uL (1.8-6.4); PLATELET COUNT 106 K/uL (156-360); RBC DIS.WIDTH-CV 15.9 % (11.8-14.6); RBC DIS.WIDTH-SD 52.7 % (39-53); RED BLOOD COUNT 2.63 M/uL (4.00-5.50); WHITE BLOOD COUNT 6.4 K/uL (4.1-10.2)
[2017-02-25 05:54] LABS: INTER. NORMALIZED RATIO 1.3; PROTHROMBIN TIME 12.9 (9.2-11.2)
[2017-02-25 05:56] LABS: ANION GAP 9 MEQ/L (2-14); CHLORIDE 113 MEQ/L (99-109); GFR ESTIMATE (CALCULATED) 36 mL/min/; GLUCOSE 137 mg/dL (70-99); MAGNESIUM 2.3 mg/dl (1.3-2.7); POTASSIUM 4.2 MEQ/L (3.7-5.4); SAMPLE HEMOLYSIS CHECK 0; SAMPLE ICTERIC CHECK 0; SAMPLE LIPEMIA CHECK 0; SODIUM 144 MEQ/L (136-147); UREA NITROGEN (BUN) 40 mg/dL (9-23)
[2017-02-25 07:51] LABS: PTT 46.3 (25-32)
[2017-02-26] VITALS: BP 87/50
[2017-02-26 06:39] LABS: EOSINOPHIL (%) 0.9 % (0-5); EOSINOPHIL COUNT 0.1 K/uL (0-0.3); HEMATOCRIT 23.9 % (38.0-50.0); IMMATURE GRANULOCYTE (%) 0.8 % (0.0-0.7); IMMATURE GRANULOCYTE COUNT 0.1 K/uL; INSTRUMENT ABS NEUTROPHIL CT 5.9 K/uL; LYMPHOCYTE COUNT 0.9 K/uL (1.0-2.8); MCH 31.1 PG (29.0-34.0); MCHC 33.1 G/DL (30.0-36.0); MCV 94.1 FL (86-99); MEAN PLAT.VOLUME 11.9 uM^3 (9.0-12.4); MONOCYTE COUNT 0.6 K/uL (0-0.8); NEUTROPHIL (%) 78.2 % (45-76); NEUTROPHIL COUNT 5.9 K/uL (1.8-6.4); RBC DIS.WIDTH-SD 54.1 % (39-53); RED BLOOD COUNT 2.54 M/uL (4.00-5.50); WHITE BLOOD COUNT 7.6 K/uL (4.1-10.2)
[2017-02-26 06:42] LABS: PLATELET COUNT 138 K/uL (156-360)
[2017-02-26 06:52] LABS: ANION GAP 9 MEQ/L (2-14); CHLORIDE 114 MEQ/L (99-109); GFR ESTIMATE (CALCULATED) 32 mL/min/; GLUCOSE 107 mg/dL (70-99); MAGNESIUM 2.3 mg/dl (1.3-2.7); POTASSIUM 4.7 MEQ/L (3.7-5.4); SAMPLE HEMOLYSIS CHECK 2; SAMPLE ICTERIC CHECK 0; SAMPLE LIPEMIA CHECK 0; SODIUM 144 MEQ/L (136-147); UREA NITROGEN (BUN) 45 mg/dL (9-23)
[2017-02-26 08:00] VITALS: BP 96/42
[2017-02-26 08:13] LABS: BASE EXCESS -0.7 mEq/L (-3 to +3); BICARBONATE 22.6 mEq/L (22-26); CARBOXY HGB 2.3 % (0-5); DEVICE 980 PB; FI02 30 %; PCO2 31 mm Hg (35-45); PO2 103 mm Hg (80-100); SITE ART LINE; pH 7.47 (7.35-7.45)
[2017-02-26 08:14] LABS: MODE SPONT; PEEP 5 CM/H20; PRES. SUPPORT 14 CM/H2O; TOTAL RESP RATE 20 resp/min
[2017-02-27 04:00] VITALS: BP 107/60
[2017-02-27 05:00] VITALS: BP 107/60
[2017-02-27 05:55] LABS: EOSINOPHIL (%) 0.9 % (0-5); EOSINOPHIL COUNT 0.1 K/uL (0-0.3); HEMATOCRIT 24.7 % (38.0-50.0); IMMATURE GRANULOCYTE (%) 0.6 % (0.0-0.7); INSTRUMENT ABS NEUTROPHIL CT 5.3 K/uL; LYMPHOCYTE COUNT 0.9 K/uL (1.0-2.8); MCH 30.1 PG (29.0-34.0); MCHC 31.6 G/DL (30.0-36.0); MCV 95.4 FL (86-99); MEAN PLAT.VOLUME 11.8 uM^3 (9.0-12.4); MONOCYTE (%) 7.4 % (3-12); MONOCYTE COUNT 0.5 K/uL (0-0.8); NEUTROPHIL (%) 77.7 % (45-76); NEUTROPHIL COUNT 5.3 K/uL (1.8-6.4); PLATELET COUNT 108 K/uL (156-360); RBC DIS.WIDTH-CV 16.2 % (11.8-14.6); RBC DIS.WIDTH-SD 55.4 % (39-53); RED BLOOD COUNT 2.59 M/uL (4.00-5.50); WHITE BLOOD COUNT 6.8 K/uL (4.1-10.2)
[2017-02-27 06:17] LABS: INTER. NORMALIZED RATIO 1.4; PROTHROMBIN TIME 14.5 (9.2-11.2)
[2017-02-27 06:18] LABS: ANION GAP 13 MEQ/L (2-14); CHLORIDE 112 MEQ/L (99-109); GFR ESTIMATE (CALCULATED) 26 mL/min/; GLUCOSE 115 mg/dL (70-99); MAGNESIUM 2.3 mg/dl (1.3-2.7); SAMPLE HEMOLYSIS CHECK 0; SAMPLE ICTERIC CHECK 0; SAMPLE LIPEMIA CHECK 0; SODIUM 144 MEQ/L (136-147); UREA NITROGEN (BUN) 47 mg/dL (9-23)
[2017-02-27 15:00] VITALS: BP 59/41
== END 2017-02-27 18:06 | DRG 870 ==
LOC: EME → EDBD 03:52 → 4WEST 06:04 → EDOF 06:04 → 4WEST 06:04
PROVIDERS: Emergency Medicine; Internal Medicine Nephrology; Obstetrics & Gynecology
PROC: 0BH17EZ Insertion of Endotracheal Airway into Trachea, Via Natural or Artificial Opening (ICD-10-PCS; principal; 2017-02-18)
PROC: 03HY32Z Insertion of Monitoring Device into Upper Artery, Percutaneous Approach (ICD-10-PCS; principal; 2017-02-18)
PROC: 02HV33Z Insertion of Infusion Device into Superior Vena Cava, Percutaneous Approach (ICD-10-PCS; principal; 2017-02-18)
PROC: 5A1955Z Respiratory Ventilation, Greater than 96 Consecutive Hours (ICD-10-PCS; principal; 2017-02-18)
DX: A41.9 Sepsis, unspecified organism (principal); J96.01 Acute respiratory failure with hypoxia; R65.21 Severe sepsis with septic shock; J18.9 Pneumonia, unspecified organism; E87.2 Acidosis; I11.0 Hypertensive heart disease with heart failure; I24.8 Other forms of acute ischemic heart disease; E83.42 Hypomagnesemia; I50.9 Heart failure, unspecified; I48.91 Unspecified atrial fibrillation; D64.9 Anemia, unspecified; E78.5 Hyperlipidemia, unspecified; E83.39 Other disorders of phosphorus metabolism; E86.0 Dehydration; E87.6 Hypokalemia; K21.9 Gastro-esophageal reflux disease without esophagitis; M10.9 Gout, unspecified; N39.0 Urinary tract infection, site not specified; Z66 Do not resuscitate; Z86.711 Personal history of pulmonary embolism; Z86.718 Personal history of other venous thrombosis and embolism; R41.82 Altered mental status, unspecified; Z95.0 Presence of cardiac pacemaker; E66.9 Obesity, unspecified; Z68.33 Body mass index [BMI] 33.0-33.9, adult; R45.1 Restlessness and agitation; N28.9 Disorder of kidney and ureter, unspecified
CPT/HCPCS: 36600; 36620; 71010; 71250; 74176; 80048; 80053; 80202; 81003; 82533 91; 82550; 82550 91; 82553; 82803; 82948; 83605; 83690; 83735; 83880; 84100; 84484; 84999; 85014; 85018; 85025; 85027; 85610; 85730; 86900; 86901; 86920; 87040; 87070; 87077; 87086; 87106; 87186; 87205; 87449; 87641; 93005; 94002; 94003; 94640; 94640 76; 94667; 94668; 94799; 99202; 99281; 99285; J0610; J0692; J0696; J1200; J1450; J1815; J1940; J1956; J2250; J2270; J2543; J2704; J2765; J3010; J3370; J3430; J3475; J3480; J7030; J7050; J7070; J7120; J7608; P9016; P9045; P9047; S0028